=== PATIENT | male | born 1980 | race Caucasian/White ===

== ENCOUNTER 2018-01-10 05:38 | Emergency (ER) | payer OTHER, SELFPAY ==
[2018-01-10 05:39] VITALS: BP 179/104; PULSE 82; RESP 18; TEMP 36.4; O2SAT 97; BMI 35.2
--- NOTE | 2018-01-10 05:50 | RAD_ITS ---
STUDY: X-RAY - RIGHT HAND REASON FOR EXAM: Male, 37 years old. Fell down stairs, laceration across palm of right hand, pain in area of mid to lateral right clavicle. TECHNIQUE: 3 view(s) of the hand. COMPARISON: None. FINDINGS: Normal radiocarpal articulation. Normal distal radioulnar joint. Normal visualized carpal bones. Normal carpal articulations Normal carpometacarpal articulation of the thumb. Normal second through fifth carpometacarpal joints. Normal metacarpi. Normal metacarpophalangeal joint of the thumb. Normal interphalangeal joint of the thumb. Normal proximal and distal phalanges of the thumb. Normal metacarpophalangeal joints of the second through fifth fingers. Normal proximal and distal interphalangeal joints of the second through fifth fingers. Normal phalanges of the second through fifth fingers. The soft tissue structures are unremarkable. RAD/Hand Min 3 Views IMPRESSION: Normal x-ray examination of the hand. Electronically Signed: Sonia Cowan MD at 6:54 EST , Service support ,
--- NOTE | 2018-01-10 05:50 | RAD_ITS ---
STUDY: X-RAY - RIGHT SHOULDER REASON FOR EXAM: Male, 37 years old. Fell down stairs, laceration across palm of right hand, pain in area of mid to lateral right clavicle. TECHNIQUE: 4 view(s) of the shoulder. COMPARISON: None. FINDINGS: Normal glenohumeral articulation. Normal acromioclavicular joint. Normal acromion. Clavicle is intact. Normal humeral head and visualized proximal humerus. The soft tissue structures are unremarkable. Normal visualized pulmonary apex. RAD/Shoulder min 2 Views IMPRESSION: Normal x-ray examination of the shoulder. Electronically Signed: Sonia Cowan MD at 6:56 EST , Service support ,
[2018-01-10] MEDS: Naproxen 250 MG Tablet 500 MG PO (05:57)
--- NOTE | 2018-01-10 07:10 | ED.VISSUMM ---
- ER Visit Summary Date of Service: 01/10/18 Chief Complaint: Fall History of Present Illness: The patient is a 37 M with no primary care physician. Reports that yesterday he was carrying a glass rivera when he slipped on the ice and fell. He landed on the pain with his right hand and suffered a laceration. He repaired this with new skin and Steri-Strips. This was approximately 12 hours ago. He states that as the day has gone on he has noticed pain in his right shoulder. Pain is 10 out of 10 with movement 8 out of 10 at rest. Is not taking anything for pain. He is right-hand dominant. He does not know when his last tetanus shot was. He denies any other injuries. No blow to the head or loss of consciousness. No neck or back pain. Physical Examination: Vitals: Stable. Afebrile. Neck: No vertebral tenderness. Full ROM without difficulty. Cleared by NEXUS criteria. Back: No vertebral tenderness. General: A&O x 3. NAD. Cardiovascular exam: Regular rate and rhythm, no murmur, rub or gallop. Respiratory exam: Chest nontender. No crepitus. Clear to auscultation bilaterally. No wheezes or stridor. Abdominal exam: Soft, nontender, nondistended, normal bowel sounds. No pain in RUQ or LUQ specifically. No peritoneal signs. Extremity: Moderate to palpation over the right AC joint. No pain over the deltoid. He has a 7 cm laceration over the palm of his right hand. There is no surrounding erythema. There is no bleeding. He is neurovascular intact distally.. Test Results: Right hand x-ray shows no fracture or foreign body. Right shoulder x-ray is normal. Emergency Department Course and Treatment: Patient had his tetanus updated. He was given naproxen for pain and placed in a sling. Treatment Plan: Patient will be discharged instructions to follow-up Dr. Antoni Mcallister in 1 week if not improving. Placed on naproxen for pain. Watch closely for infection of his right hand. Return to the emergency department for any worsening symptoms. Disposition: To home in improved and stable condition. Impression: 1. Laceration right hand, 7 cm, not repaired. 2. Right AC joint sprain. This note was generated with [employer] software. It may contain incorrect words, spelling, and punctuation that were not noted in review of the chart prior to signing ED Disposition - Plan for ED Patient: Disposition: Home or Assisted Living Chief Complaint: Upper Extremity Injury Instructions: ED Sprain AC Joint Prescriptions: Naproxen [Naprosyn] 500 mg PO BID #20 tablet Referrals: Antoni Mcallister MD [STAFF PHYSICIAN] - 1 Week if not improving
== END 2018-01-10 07:26 | disposition home or self-care (01) ==
LOC: ED 05:55
PROVIDERS: Emergency Provider Emergency Medicine
DX: S43.51XA Sprain of right acromioclavicular joint, initial encounter (principal); S61.411A Laceration without foreign body of right hand, initial encounter; W00.0XXA Fall on same level due to ice and snow, initial encounter; Y93.9 Activity, unspecified; Y92.89 Other specified places as the place of occurrence of the external cause; Y99.9 Unspecified external cause status
CPT/HCPCS: 73030; 73130; 99283